=== PATIENT | male | born 1940 | race Caucasian/White ===

== ENCOUNTER 2017-12-14 10:04 | Emergency (ER) | payer MEDICARE, BC | END 2017-12-14 11:09 | disposition home or self-care (01) | LOC: FTE 10:04 | DX: Z76.0 Encounter for issue of repeat prescription (principal); I10 Essential (primary) hypertension | CPT/HCPCS: 99281 ==

== ENCOUNTER 2018-07-02 10:14 | Inpatient (IN) | payer MEDICARE, BC ==
[2018-07-02 11:11] LABS: ADD MAN DIFF? NO
[2018-07-02 11:13] LABS: BASOPHIL # 0.1 10^3/ul (0.0-0.1); BASOPHILS % 0.3 % (0.0-2.0); EOSINOPHILS % 0.1 % (0.0-7.0); HEMATOCRIT 25.1 % (42.0-52.0); HEMOGLOBIN 8.4 g/dl (14.0-18.0); LYMPHOCYTES # 1.7 10^3/ul (0.8-2.9); LYMPHOCYTES % 8.4 % (15.0-51.0); MEAN CORPUSCULAR HEMOGLOBIN 31.3 pg (29.0-33.0); MEAN CORPUSCULAR HGB CONC 33.5 g/dl (32.0-37.0); MEAN CORPUSCULAR VOLUME 93.7 fl (82.0-101.0); MEAN PLATELET VOLUME 9.4 fl (7.4-10.4); MONOCYTE # 1.1 10^3/ul (0.3-0.9); MONOCYTES % 5.6 % (0.0-11.0); NEUTROPHIL # 16.9 10^3/ul (1.6-7.5); NEUTROPHILS % 84.6 % (39.0-77.0); PLATELET COUNT 283 10^3/UL (140-415); RED BLOOD COUNT 2.68 10^6/ul (4.70-6.10)
[2018-07-02] MEDS: ACETAMINOPHEN 325 MG TAB PO (11:17)
[2018-07-02] MEDS: SOD CHLORIDE 0.9% 1,000 ML IV ×2 (11:19→13:40)
[2018-07-02 11:32] LABS: INR 1.08; PARTIAL THROMBOPLASTIN TIME 27.5 Sec (23.0-35.0); PROTIME 14.1 Sec (11.9-14.9); PT RATIO 1.1
[2018-07-02 11:39] LABS: ALANINE AMINOTRANSFERASE 23 IU/L (13-69); ALBUMIN 3.6 g/dl (3.3-4.9); ALBUMIN/GLOBULIN RATIO 1.33; ALKALINE PHOSPHATASE 63 IU/L (42-121); AMYLASE 109 U/L (11-123); ANION GAP 14 (5-13); ASPARTATE AMINO TRANSFERASE 27 IU/L (15-46); BILIRUBIN,INDIRECT 0.2 mg/dl (0-1.1); BILIRUBIN,TOTAL 0.2 mg/dl (0.2-1.3); BLOOD UREA NITROGEN 87 mg/dl (7-20); CALCIUM 9.6 mg/dl (8.4-10.2); CARBON DIOXIDE 17 mmol/L (21-31); CHLORIDE 108 mmol/L (97-110); CREATINE KINASE 88 IU/L (23-200); CREATININE 2.04 mg/dl (0.61-1.24); GLUCOSE 127 mg/dl (70-220); LIPASE 178 U/L (23-300); POTASSIUM 4.8 mmol/L (3.5-5.1); SODIUM 139 mmol/L (135-144); TOTAL PROTEIN 6.3 g/dl (6.1-8.1)
[2018-07-02 11:51] LABS: CK INDEX 2.8; TROPONIN-I < 0.012 ng/ml (0.000-0.120)
[2018-07-02 11:56] LABS: CK-MB 2.49 ng/ml (0.0-2.4)
[2018-07-02 12:16] LABS: ADD UMIC NO; UR ASCORBIC ACID 40 mg/dL (NEGATIVE); UR BILIRUBIN (Dip) NEGATIVE (NEGATIVE); UR BLOOD (Dip) NEGATIVE (NEGATIVE); UR CLARITY CLEAR (CLEAR); UR COLOR YELLOW (YELLOW); UR GLUCOSE (Dip) NEGATIVE (NEGATIVE); UR KETONES (Dip) TRACE mg/dL (NEGATIVE); UR LEUKOCYTE ESTERASE (Dip) NEGATIVE Leu/ul (NEGATIVE); UR NITRITE (Dip) NEGATIVE (NEGATIVE); UR SPECIFIC GRAVITY (Dip) 1.018 (1.003-1.030); UR TOTAL PROTEIN (Dip) NEGATIVE (NEGATIVE); UR UROBILINOGEN (Dip) NEGATIVE (NEGATIVE)
[2018-07-02] MEDS ORDERED: ONDANSETRON 4 MG INJ IV ×2 (13:30→19:30)
[2018-07-02] MEDS ORDERED: ACETAMINOPHEN 325 MG TAB PO (13:30)
[2018-07-02] MEDS: DEXTROSE 5%-0.45% NACL 1,000 ML IV (19:58)
[2018-07-02] MEDS: morphine 2 MG INJ IV (21:52)
[2018-07-02] MEDS: LORAZEPAM 2 MG INJ IV (23:14)
[2018-07-03 00:59] LABS: HEMATOCRIT 19.4 % (42.0-52.0)
[2018-07-03 01:13] LABS: HEMOGLOBIN 6.5 g/dl (14.0-18.0)
[2018-07-03] MEDS: morphine 2 MG INJ IV (04:25)
[2018-07-03] MEDS: DEXTROSE 5%-0.45% NACL 1,000 ML IV ×3 (05:30→18:41)
[2018-07-03 05:52] LABS: IMMEDIATE SPIN CROSSMATCH 1 2
[2018-07-03] MEDS: PANTOPRAZOLE 40 MG INJ IV ×2 (06:23→18:40)
[2018-07-03 10:39] LABS: HEMATOCRIT 25.3 % (42.0-52.0); HEMOGLOBIN 8.6 g/dl (14.0-18.0)
[2018-07-03 11:14] LABS: ANION GAP 6 (5-13); BLOOD UREA NITROGEN 52 mg/dl (7-20); CALCIUM 9.3 mg/dl (8.4-10.2); CARBON DIOXIDE 23 mmol/L (21-31); CHLORIDE 113 mmol/L (97-110); CREATININE 1.47 mg/dl (0.61-1.24); GLUCOSE 111 mg/dl (70-220); POTASSIUM 4.2 mmol/L (3.5-5.1); SODIUM 142 mmol/L (135-144)
[2018-07-03] MEDS: ACETAMINOPHEN 1000MG/100ML IV 100 ML IVPB ×2 (12:17→22:41)
[2018-07-03 13:59] LABS: HEMOGLOBIN 8.5 g/dl (14.0-18.0)
[2018-07-03] MEDS: traZODone 100 MG TAB PO (20:47)
[2018-07-04 05:49] LABS: ADD MAN DIFF? NO
[2018-07-04 05:51] LABS: WHITE BLOOD COUNT 7.8 10^3/ul (4.8-10.8)
[2018-07-04 05:51] LABS: BASOPHILS % 0.4 % (0.0-2.0); EOSINOPHILS # 0.3 10^3/ul (0.0-0.5); EOSINOPHILS % 3.3 % (0.0-7.0); HEMATOCRIT 25.8 % (42.0-52.0); HEMOGLOBIN 8.5 g/dl (14.0-18.0); LYMPHOCYTES # 1.1 10^3/ul (0.8-2.9); LYMPHOCYTES % 14.4 % (15.0-51.0); MEAN CORPUSCULAR HEMOGLOBIN 30.7 pg (29.0-33.0); MEAN CORPUSCULAR HGB CONC 32.9 g/dl (32.0-37.0); MEAN CORPUSCULAR VOLUME 93.1 fl (82.0-101.0); MEAN PLATELET VOLUME 9.4 fl (7.4-10.4); MONOCYTE # 0.8 10^3/ul (0.3-0.9); MONOCYTES % 9.9 % (0.0-11.0); NEUTROPHIL # 5.6 10^3/ul (1.6-7.5); NEUTROPHILS % 71.5 % (39.0-77.0); PLATELET COUNT 190 10^3/UL (140-415); RED BLOOD COUNT 2.77 10^6/ul (4.70-6.10); RED CELL DISTRIBUTION WIDTH 14.5 % (11.5-14.5)
[2018-07-04] MEDS: morphine 2 MG INJ IV (06:12)
[2018-07-04] MEDS: PANTOPRAZOLE 40 MG INJ IV ×2 (06:16→17:23)
[2018-07-04 06:21] LABS: ANION GAP 10 (5-13); BLOOD UREA NITROGEN 35 mg/dl (7-20); CARBON DIOXIDE 24 mmol/L (21-31); CHLORIDE 107 mmol/L (97-110); CREATININE 1.29 mg/dl (0.61-1.24); GLUCOSE 96 mg/dl (70-220); POTASSIUM 4.3 mmol/L (3.5-5.1); SODIUM 141 mmol/L (135-144)
[2018-07-04 06:22] LABS: ALANINE AMINOTRANSFERASE 23 IU/L (13-69); ALBUMIN 2.9 g/dl (3.3-4.9); ALBUMIN/GLOBULIN RATIO 1.03; ALKALINE PHOSPHATASE 51 IU/L (42-121); ASPARTATE AMINO TRANSFERASE 26 IU/L (15-46); BILIRUBIN,INDIRECT 0.5 mg/dl (0-1.1); BILIRUBIN,TOTAL 0.5 mg/dl (0.2-1.3); CALCIUM 8.6 mg/dl (8.4-10.2); TOTAL PROTEIN 5.7 g/dl (6.1-8.1)
[2018-07-04] MEDS: DEXTROSE 5%-0.45% NACL 1,000 ML IV ×2 (07:32→11:10)
[2018-07-04] MEDS: ATENOLOL 25 MG TAB PO (08:16)
[2018-07-04] MEDS: ESCITALOPRAM 10 MG TAB PO (08:16)
[2018-07-04 14:59] LABS: ANION GAP 7 (5-13); BLOOD UREA NITROGEN 29 mg/dl (7-20); CALCIUM 8.8 mg/dl (8.4-10.2); CARBON DIOXIDE 22 mmol/L (21-31); CHLORIDE 110 mmol/L (97-110); CREATININE 1.31 mg/dl (0.61-1.24); GLUCOSE 119 mg/dl (70-220); SODIUM 139 mmol/L (135-144)
[2018-07-04] MEDS: POLYETHYLENE GLYCOL 3350 119 GM POWDER PO (15:21)
[2018-07-04] MEDS: traZODone 100 MG TAB PO (20:13)
[2018-07-05] MEDS: DEXTROSE 5%-0.45% NACL 1,000 ML IV ×2 (02:54→20:29)
[2018-07-05] MEDS ORDERED: VITAMIN A & D 5 GM OINT PACKET TOP (05:12)
[2018-07-05] MEDS: PANTOPRAZOLE 40 MG INJ IV ×2 (05:16→18:22)
[2018-07-05] MEDS ORDERED: EPHEDrine SULFATE 50 MG/5 ML SYG (07:00)
[2018-07-05] MEDS ORDERED: PROPOFOL 200 MG INJ (07:00)
[2018-07-05] MEDS: ESCITALOPRAM 10 MG TAB PO (09:19)
[2018-07-05] MEDS: ATENOLOL 25 MG TAB PO (09:20)
[2018-07-05] MEDS ORDERED: ONDANSETRON 4 MG INJ IV (10:00)
[2018-07-05] MEDS ORDERED: FENTAnyl 50 MCG/ML VIAL IV ×3 (10:00)
[2018-07-05] MEDS ORDERED: hydrALAzine 20 MG INJ IV (18:30)
[2018-07-05 19:39] LABS: THYROID STIMULATING HORMONE 0.346 MIU/L (0.465-4.680)
[2018-07-05] MEDS: traZODone 100 MG TAB PO (20:22)
[2018-07-06 01:23] LABS: TROPONIN-I < 0.012 ng/ml (0.000-0.120)
[2018-07-06 06:26] LABS: CHOL/HDL RATIO 3.7 RATIO; HDL CHOLESTEROL 23 mg/dl (31-75); LDL CHOLESTEROL,CALCULATED 48 mg/dl; TRIGLYCERIDES 82 mg/dl (0-149)
[2018-07-06 06:26] LABS: CHOLESTEROL 87 mg/dl (100-200)
[2018-07-06 06:29] LABS: TROPONIN-I < 0.012 ng/ml (0.000-0.120)
[2018-07-06] MEDS: PANTOPRAZOLE 40 MG INJ IV ×2 (06:45→17:46)
[2018-07-06] MEDS: ESCITALOPRAM 10 MG TAB PO (08:48)
[2018-07-06 12:16] LABS: TROPONIN-I < 0.012 ng/ml (0.000-0.120)
[2018-07-06] MEDS: DEXTROSE 5%-0.45% NACL 1,000 ML IV (12:24)
[2018-07-06] MEDS: traZODone 100 MG TAB PO (21:44)
[2018-07-07] MEDS: morphine LIQ (10 MG/5 ML) CUP PO ×2 (03:45→15:14)
[2018-07-07] MEDS: DEXTROSE 5%-0.45% NACL 1,000 ML IV (05:53)
[2018-07-07] MEDS: PANTOPRAZOLE 40 MG INJ IV ×2 (05:53→17:09)
[2018-07-07 05:56] LABS: ADD MAN DIFF? NO
[2018-07-07 06:04] LABS: BASOPHILS % 0.3 % (0.0-2.0); EOSINOPHILS # 0.2 10^3/ul (0.0-0.5); EOSINOPHILS % 4.2 % (0.0-7.0); HEMATOCRIT 24.6 % (42.0-52.0); HEMOGLOBIN 8.1 g/dl (14.0-18.0); LYMPHOCYTES # 1.1 10^3/ul (0.8-2.9); LYMPHOCYTES % 18.9 % (15.0-51.0); MEAN CORPUSCULAR HEMOGLOBIN 30.6 pg (29.0-33.0); MEAN CORPUSCULAR HGB CONC 32.9 g/dl (32.0-37.0); MEAN CORPUSCULAR VOLUME 92.8 fl (82.0-101.0); MEAN PLATELET VOLUME 9.4 fl (7.4-10.4); MONOCYTE # 0.7 10^3/ul (0.3-0.9); MONOCYTES % 12.7 % (0.0-11.0); NEUTROPHIL # 3.7 10^3/ul (1.6-7.5); NEUTROPHILS % 63.4 % (39.0-77.0); PLATELET COUNT 258 10^3/UL (140-415); RED BLOOD COUNT 2.65 10^6/ul (4.70-6.10); RED CELL DISTRIBUTION WIDTH 14.3 % (11.5-14.5)
[2018-07-07 06:04] LABS: WHITE BLOOD COUNT 5.8 10^3/ul (4.8-10.8)
[2018-07-07 06:29] LABS: ANION GAP 5 (5-13); BLOOD UREA NITROGEN 22 mg/dl (7-20); CALCIUM 8.6 mg/dl (8.4-10.2); CARBON DIOXIDE 24 mmol/L (21-31); CHLORIDE 111 mmol/L (97-110); CREATININE 1.57 mg/dl (0.61-1.24); GLUCOSE 104 mg/dl (70-220); POTASSIUM 3.7 mmol/L (3.5-5.1); SODIUM 140 mmol/L (135-144)
[2018-07-07] MEDS: ESCITALOPRAM 10 MG TAB PO (08:19)
[2018-07-07] MEDS: PROPOFOL 40 ML (19:47)
[2018-07-07] MEDS: FENTAnyl 50 MCG/ML VIAL (19:47)
[2018-07-07] MEDS: PROPOFOL 20 ML (19:47)
[2018-07-07] MEDS: LIDOCAINE 2% (SDV) 5 ML INJ (19:47)
[2018-07-07] MEDS: traZODone 100 MG TAB PO (20:54)
[2018-07-08 05:46] LABS: ADD MAN DIFF? NO
[2018-07-08 05:51] LABS: BASOPHILS % 0.4 % (0.0-2.0); EOSINOPHILS # 0.3 10^3/ul (0.0-0.5); HEMATOCRIT 25.2 % (42.0-52.0); HEMOGLOBIN 8.4 g/dl (14.0-18.0); LYMPHOCYTES # 1.2 10^3/ul (0.8-2.9); LYMPHOCYTES % 21.5 % (15.0-51.0); MEAN CORPUSCULAR HEMOGLOBIN 30.7 pg (29.0-33.0); MEAN CORPUSCULAR HGB CONC 33.3 g/dl (32.0-37.0); MONOCYTE # 0.8 10^3/ul (0.3-0.9); MONOCYTES % 14.1 % (0.0-11.0); NEUTROPHIL # 3.2 10^3/ul (1.6-7.5); NEUTROPHILS % 57.3 % (39.0-77.0); PLATELET COUNT 278 10^3/UL (140-415); RED BLOOD COUNT 2.74 10^6/ul (4.70-6.10); RED CELL DISTRIBUTION WIDTH 14.2 % (11.5-14.5)
[2018-07-08 05:51] LABS: WHITE BLOOD COUNT 5.5 10^3/ul (4.8-10.8)
[2018-07-08 06:19] LABS: ANION GAP 8 (5-13); BLOOD UREA NITROGEN 22 mg/dl (7-20); CALCIUM 8.9 mg/dl (8.4-10.2); CARBON DIOXIDE 23 mmol/L (21-31); CHLORIDE 110 mmol/L (97-110); CREATININE 1.36 mg/dl (0.61-1.24); GLUCOSE 96 mg/dl (70-220); POTASSIUM 4.1 mmol/L (3.5-5.1); SODIUM 141 mmol/L (135-144)
[2018-07-08] MEDS: PANTOPRAZOLE 40 MG INJ IV ×2 (06:28→17:10)
[2018-07-08] MEDS: ESCITALOPRAM 10 MG TAB PO (08:03)
[2018-07-08] MEDS: traZODone 100 MG TAB PO (21:02)
[2018-07-09] MEDS: PANTOPRAZOLE 40 MG INJ IV ×2 (05:38→19:06)
[2018-07-09 06:12] LABS: ADD MAN DIFF? NO
[2018-07-09 06:16] LABS: WHITE BLOOD COUNT 6.2 10^3/ul (4.8-10.8)
[2018-07-09 06:16] LABS: BASOPHILS % 0.5 % (0.0-2.0); EOSINOPHILS # 0.3 10^3/ul (0.0-0.5); EOSINOPHILS % 5.1 % (0.0-7.0); HEMATOCRIT 27.2 % (42.0-52.0); LYMPHOCYTES # 1.3 10^3/ul (0.8-2.9); MEAN CORPUSCULAR HEMOGLOBIN 30.5 pg (29.0-33.0); MEAN CORPUSCULAR HGB CONC 33.1 g/dl (32.0-37.0); MEAN CORPUSCULAR VOLUME 92.2 fl (82.0-101.0); MEAN PLATELET VOLUME 9.2 fl (7.4-10.4); MONOCYTE # 0.8 10^3/ul (0.3-0.9); MONOCYTES % 12.4 % (0.0-11.0); NEUTROPHIL # 3.8 10^3/ul (1.6-7.5); NEUTROPHILS % 60.2 % (39.0-77.0); PLATELET COUNT 327 10^3/UL (140-415); RED BLOOD COUNT 2.95 10^6/ul (4.70-6.10); RED CELL DISTRIBUTION WIDTH 14.1 % (11.5-14.5)
[2018-07-09 06:58] LABS: ANION GAP 3 (5-13); BLOOD UREA NITROGEN 25 mg/dl (7-20); CALCIUM 9.3 mg/dl (8.4-10.2); CARBON DIOXIDE 27 mmol/L (21-31); CHLORIDE 108 mmol/L (97-110); GLUCOSE 88 mg/dl (70-220); POTASSIUM 4.3 mmol/L (3.5-5.1); SODIUM 138 mmol/L (135-144)
[2018-07-09] MEDS: PAROXETINE 20 MG TAB PO (08:47)
[2018-07-09] MEDS: traZODone 100 MG TAB PO (20:30)
[2018-07-10] MEDS: PANTOPRAZOLE 40 MG INJ IV ×2 (05:14→17:26)
[2018-07-10 05:27] LABS: WHITE BLOOD COUNT 6.1 10^3/ul (4.8-10.8)
[2018-07-10 05:27] LABS: ADD MAN DIFF? NO
[2018-07-10 05:28] LABS: BASOPHILS % 0.5 % (0.0-2.0); EOSINOPHILS # 0.3 10^3/ul (0.0-0.5); EOSINOPHILS % 4.8 % (0.0-7.0); HEMATOCRIT 27.7 % (42.0-52.0); HEMOGLOBIN 9.1 g/dl (14.0-18.0); LYMPHOCYTES # 1.2 10^3/ul (0.8-2.9); LYMPHOCYTES % 20.2 % (15.0-51.0); MEAN CORPUSCULAR HEMOGLOBIN 30.3 pg (29.0-33.0); MEAN CORPUSCULAR HGB CONC 32.9 g/dl (32.0-37.0); MEAN CORPUSCULAR VOLUME 92.3 fl (82.0-101.0); MEAN PLATELET VOLUME 9.9 fl (7.4-10.4); MONOCYTE # 0.7 10^3/ul (0.3-0.9); MONOCYTES % 11.9 % (0.0-11.0); NEUTROPHIL # 3.8 10^3/ul (1.6-7.5); NEUTROPHILS % 62.1 % (39.0-77.0); PLATELET COUNT 292 10^3/UL (140-415); POSITIVE DIFF @See below
[2018-07-10 06:04] LABS: ANION GAP 6 (5-13); BLOOD UREA NITROGEN 25 mg/dl (7-20); CALCIUM 9.1 mg/dl (8.4-10.2); CARBON DIOXIDE 24 mmol/L (21-31); CHLORIDE 107 mmol/L (97-110); CREATININE 1.49 mg/dl (0.61-1.24); GLUCOSE 93 mg/dl (70-220); POTASSIUM 4.3 mmol/L (3.5-5.1); SODIUM 137 mmol/L (135-144)
[2018-07-10] MEDS: PAROXETINE 20 MG TAB PO (08:02)
[2018-07-10] MEDS: traZODone 100 MG TAB PO (21:15)
[2018-07-10] MEDS: ACETAMINOPHEN 500 MG TAB PO (23:57)
[2018-07-11 05:09] LABS: ADD MAN DIFF? NO
[2018-07-11 05:11] LABS: WHITE BLOOD COUNT 5.9 10^3/ul (4.8-10.8)
[2018-07-11 05:11] LABS: BASOPHILS % 0.5 % (0.0-2.0); EOSINOPHILS # 0.3 10^3/ul (0.0-0.5); EOSINOPHILS % 4.9 % (0.0-7.0); HEMOGLOBIN 9.2 g/dl (14.0-18.0); LYMPHOCYTES # 1.3 10^3/ul (0.8-2.9); LYMPHOCYTES % 21.6 % (15.0-51.0); MEAN CORPUSCULAR HEMOGLOBIN 29.9 pg (29.0-33.0); MEAN CORPUSCULAR HGB CONC 32.9 g/dl (32.0-37.0); MEAN CORPUSCULAR VOLUME 90.9 fl (82.0-101.0); MEAN PLATELET VOLUME 8.8 fl (7.4-10.4); MONOCYTE # 0.7 10^3/ul (0.3-0.9); MONOCYTES % 11.1 % (0.0-11.0); NEUTROPHIL # 3.6 10^3/ul (1.6-7.5); NEUTROPHILS % 61.2 % (39.0-77.0); PLATELET COUNT 353 10^3/UL (140-415); RED BLOOD COUNT 3.08 10^6/ul (4.70-6.10); RED CELL DISTRIBUTION WIDTH 13.7 % (11.5-14.5)
[2018-07-11] MEDS: PANTOPRAZOLE 40 MG INJ IV ×2 (05:28→18:39)
[2018-07-11 05:36] LABS: ANION GAP 8 (5-13); BLOOD UREA NITROGEN 28 mg/dl (7-20); CALCIUM 9.2 mg/dl (8.4-10.2); CARBON DIOXIDE 25 mmol/L (21-31); CHLORIDE 107 mmol/L (97-110); CREATININE 1.54 mg/dl (0.61-1.24); GLUCOSE 93 mg/dl (70-220); POTASSIUM 4.3 mmol/L (3.5-5.1); SODIUM 140 mmol/L (135-144)
[2018-07-11] MEDS: PAROXETINE 20 MG TAB PO (08:29)
[2018-07-11] MEDS: GUAIFENESIN/DM 5ML CUP PO ×2 (12:38→21:01)
[2018-07-11] MEDS: DOCUSATE SODIUM 100 MG CAP PO ×2 (12:38→21:01)
[2018-07-11] MEDS: SOD CHLORIDE 0.45% 1,000 ML IV (14:46)
[2018-07-11] MEDS: traZODone 100 MG TAB PO (21:00)
[2018-07-12 05:38] LABS: ADD MAN DIFF? NO
[2018-07-12 05:59] LABS: WHITE BLOOD COUNT 6.5 10^3/ul (4.8-10.8)
[2018-07-12 05:59] LABS: BASOPHILS % 0.3 % (0.0-2.0); EOSINOPHILS # 0.3 10^3/ul (0.0-0.5); EOSINOPHILS % 4.2 % (0.0-7.0); HEMATOCRIT 28.7 % (42.0-52.0); HEMOGLOBIN 9.5 g/dl (14.0-18.0); LYMPHOCYTES # 1.1 10^3/ul (0.8-2.9); LYMPHOCYTES % 16.5 % (15.0-51.0); MEAN CORPUSCULAR HEMOGLOBIN 30.2 pg (29.0-33.0); MEAN CORPUSCULAR HGB CONC 33.1 g/dl (32.0-37.0); MEAN CORPUSCULAR VOLUME 91.1 fl (82.0-101.0); MEAN PLATELET VOLUME 9.1 fl (7.4-10.4); MONOCYTE # 0.8 10^3/ul (0.3-0.9); MONOCYTES % 12.5 % (0.0-11.0); NEUTROPHIL # 4.3 10^3/ul (1.6-7.5); NEUTROPHILS % 65.7 % (39.0-77.0); PLATELET COUNT 362 10^3/UL (140-415); RED BLOOD COUNT 3.15 10^6/ul (4.70-6.10); RED CELL DISTRIBUTION WIDTH 13.9 % (11.5-14.5)
[2018-07-12] MEDS: PANTOPRAZOLE 40 MG INJ IV (06:06)
[2018-07-12 06:39] LABS: ANION GAP 9 (5-13); BLOOD UREA NITROGEN 26 mg/dl (7-20); CALCIUM 9.3 mg/dl (8.4-10.2); CARBON DIOXIDE 23 mmol/L (21-31); CHLORIDE 107 mmol/L (97-110); CREATININE 1.46 mg/dl (0.61-1.24); GLUCOSE 90 mg/dl (70-220); POTASSIUM 4.3 mmol/L (3.5-5.1); SODIUM 139 mmol/L (135-144)
[2018-07-12] MEDS: PAROXETINE 20 MG TAB PO (08:44)
[2018-07-12] MEDS: traZODone 100 MG TAB PO (20:40)
[2018-07-12] MEDS: PANTOPRAZOLE (EC) 40 MG TAB PO (20:40)
[2018-07-13] MEDS: PAROXETINE 20 MG TAB PO (09:06)
[2018-07-13] MEDS: PANTOPRAZOLE (EC) 40 MG TAB PO ×2 (09:06→21:05)
[2018-07-13] MEDS: morphine LIQ (10 MG/5 ML) CUP PO ×2 (12:40→21:06)
[2018-07-13 14:27] LABS: ADD MAN DIFF? NO
[2018-07-13 14:32] LABS: WHITE BLOOD COUNT 4.2 10^3/ul (4.8-10.8)
[2018-07-13 14:32] LABS: BASOPHILS % 0.5 % (0.0-2.0); EOSINOPHILS # 0.2 10^3/ul (0.0-0.5); EOSINOPHILS % 5.3 % (0.0-7.0); HEMATOCRIT 28.1 % (42.0-52.0); HEMOGLOBIN 9.3 g/dl (14.0-18.0); LYMPHOCYTES # 0.8 10^3/ul (0.8-2.9); LYMPHOCYTES % 18.2 % (15.0-51.0); MEAN CORPUSCULAR HEMOGLOBIN 29.5 pg (29.0-33.0); MEAN CORPUSCULAR HGB CONC 33.1 g/dl (32.0-37.0); MEAN CORPUSCULAR VOLUME 89.2 fl (82.0-101.0); MEAN PLATELET VOLUME 8.8 fl (7.4-10.4); MONOCYTE # 0.6 10^3/ul (0.3-0.9); MONOCYTES % 14.6 % (0.0-11.0); NEUTROPHIL # 2.5 10^3/ul (1.6-7.5); NEUTROPHILS % 60.7 % (39.0-77.0); PLATELET COUNT 351 10^3/UL (140-415); RED BLOOD COUNT 3.15 10^6/ul (4.70-6.10); RED CELL DISTRIBUTION WIDTH 13.8 % (11.5-14.5)
[2018-07-13 14:50] LABS: ANION GAP 12 (5-13); BLOOD UREA NITROGEN 28 mg/dl (7-20); CALCIUM 9.5 mg/dl (8.4-10.2); CARBON DIOXIDE 23 mmol/L (21-31); CHLORIDE 103 mmol/L (97-110); GLUCOSE 120 mg/dl (70-220); POTASSIUM 4.2 mmol/L (3.5-5.1); SODIUM 138 mmol/L (135-144)
[2018-07-13] MEDS: traZODone 100 MG TAB PO (21:05)
[2018-07-13] MEDS: DOCUSATE SODIUM 100 MG CAP PO (21:05)
[2018-07-13] MEDS: GUAIFENESIN/DM 5ML CUP PO (21:06)
[2018-07-14 05:59] LABS: ADD MAN DIFF? NO
[2018-07-14 06:16] LABS: WHITE BLOOD COUNT 4.8 10^3/ul (4.8-10.8)
[2018-07-14 06:16] LABS: BASOPHILS % 0.4 % (0.0-2.0); EOSINOPHILS # 0.2 10^3/ul (0.0-0.5); HEMATOCRIT 30.2 % (42.0-52.0); HEMOGLOBIN 10.1 g/dl (14.0-18.0); LYMPHOCYTES # 0.9 10^3/ul (0.8-2.9); LYMPHOCYTES % 17.9 % (15.0-51.0); MEAN CORPUSCULAR HEMOGLOBIN 29.7 pg (29.0-33.0); MEAN CORPUSCULAR HGB CONC 33.4 g/dl (32.0-37.0); MEAN CORPUSCULAR VOLUME 88.8 fl (82.0-101.0); MONOCYTE # 0.6 10^3/ul (0.3-0.9); MONOCYTES % 13.4 % (0.0-11.0); NEUTROPHILS % 63.9 % (39.0-77.0); PLATELET COUNT 341 10^3/UL (140-415); RED CELL DISTRIBUTION WIDTH 13.9 % (11.5-14.5)
[2018-07-14 06:40] LABS: ANION GAP 11 (5-13); BLOOD UREA NITROGEN 28 mg/dl (7-20); CALCIUM 9.6 mg/dl (8.4-10.2); CARBON DIOXIDE 23 mmol/L (21-31); CHLORIDE 104 mmol/L (97-110); CREATININE 1.56 mg/dl (0.61-1.24); GLUCOSE 95 mg/dl (70-220); POTASSIUM 4.2 mmol/L (3.5-5.1); SODIUM 138 mmol/L (135-144)
[2018-07-14] MEDS: PAROXETINE 20 MG TAB PO (08:51)
[2018-07-14] MEDS: PANTOPRAZOLE (EC) 40 MG TAB PO ×2 (08:51→21:00)
[2018-07-14] MEDS: traZODone 100 MG TAB PO (21:00)
[2018-07-15 06:18] LABS: ADD MAN DIFF? NO
[2018-07-15 06:31] LABS: WHITE BLOOD COUNT 4.6 10^3/ul (4.8-10.8)
[2018-07-15 06:31] LABS: BASOPHILS % 0.2 % (0.0-2.0); EOSINOPHILS # 0.3 10^3/ul (0.0-0.5); EOSINOPHILS % 5.4 % (0.0-7.0); HEMATOCRIT 31.3 % (42.0-52.0); HEMOGLOBIN 10.3 g/dl (14.0-18.0); LYMPHOCYTES # 1.3 10^3/ul (0.8-2.9); LYMPHOCYTES % 27.3 % (15.0-51.0); MEAN CORPUSCULAR HEMOGLOBIN 29.7 pg (29.0-33.0); MEAN CORPUSCULAR HGB CONC 32.9 g/dl (32.0-37.0); MEAN CORPUSCULAR VOLUME 90.2 fl (82.0-101.0); MONOCYTE # 0.8 10^3/ul (0.3-0.9); MONOCYTES % 17.5 % (0.0-11.0); NEUTROPHIL # 2.3 10^3/ul (1.6-7.5); PLATELET COUNT 344 10^3/UL (140-415); RED BLOOD COUNT 3.47 10^6/ul (4.70-6.10); RED CELL DISTRIBUTION WIDTH 13.7 % (11.5-14.5)
[2018-07-15 06:59] LABS: ANION GAP 11 (5-13); BLOOD UREA NITROGEN 31 mg/dl (7-20); CALCIUM 9.8 mg/dl (8.4-10.2); CARBON DIOXIDE 24 mmol/L (21-31); CHLORIDE 103 mmol/L (97-110); CREATININE 1.75 mg/dl (0.61-1.24); GLUCOSE 92 mg/dl (70-220); POTASSIUM 5.1 mmol/L (3.5-5.1); SODIUM 138 mmol/L (135-144)
[2018-07-15] MEDS: PANTOPRAZOLE (EC) 40 MG TAB PO (08:12)
[2018-07-15] MEDS: PAROXETINE 20 MG TAB PO (08:12)
== END 2018-07-15 18:27 | DRG 378 ==
LOC: E/R 10:14 → 6WM 13:16
PROC: 0W3P8ZZ Control Bleeding in Gastrointestinal Tract, Via Natural or Artificial Opening Endoscopic (ICD-10-PCS; principal; 2018-07-03 14:00)
PROC: 0DB68ZX Excision of Stomach, Via Natural or Artificial Opening Endoscopic, Diagnostic (ICD-10-PCS; 2018-07-03 14:00)
PROC: 0DJD8ZZ Inspection of Lower Intestinal Tract, Via Natural or Artificial Opening Endoscopic (ICD-10-PCS; 2018-07-03 14:00)
PROC: 30233N1 Transfusion of Nonautologous Red Blood Cells into Peripheral Vein, Percutaneous Approach (ICD-10-PCS; 2018-07-03 14:00)
DX: K26.4 Chronic or unspecified duodenal ulcer with hemorrhage (principal); N17.9 Acute kidney failure, unspecified; D62 Acute posthemorrhagic anemia; R45.851 Suicidal ideations; F33.2 Major depressive disorder, recurrent severe without psychotic features; I12.9 Hypertensive chronic kidney disease with stage 1 through stage 4 chronic kidney disease, or unspecified chronic kidney disease; N18.3 Chronic kidney disease, stage 3 (moderate); I44.1 Atrioventricular block, second degree; K64.9 Unspecified hemorrhoids; F41.9 Anxiety disorder, unspecified; G89.29 Other chronic pain; M54.5 Low back pain; M54.10 Radiculopathy, site unspecified; R00.1 Bradycardia, unspecified
CPT/HCPCS: 36415; 36430; 70450; 71045; 72040; 80048; 80053; 80061; 81003; 82150; 82550; 82553; 83690; 84443; 84484; 85014; 85018; 85025; 85610; 85730; 86850; 86900; 86901; 86920; 87081; 88305; 88312; 93005; 93306; 97116; 97162; 97530; 99285-25